=== PATIENT | female | born 1990 ===

== ENCOUNTER 2016-07-01 12:22 | Emergency (ER) | payer OTHER ==
[~2016-07-01] VITALS: Ht 162.6 cm; Wt 64.0 kg
[~2016-07-01 12:22] MED LIST: FERR1TAB13 PO; PRENTAB26 PO
[2016-07-01 12:33] VITALS: BP 113/71; PULSE 71; TEMP 36.3; O2SAT 97; Ht 162.6 cm; Wt 64.0 kg
[2016-07-01] MEDS ORDERED: AMOX500C3 PO (13:16)
--- NOTE | 2016-07-01 19:25 | EMERGENCY ROOM VISIT NOTE ---
History Report prepared by Leora: Ewa Saavedra Under the Supervision of: Dr. Eb Blackwood M.D. First contact with patient: 12:50 Chief Complaint: SORETHROAT Stated Complaint: SORE THROAT, BODY ACHES History of Present Illness The patient is a 25 year old female who presents to the Emergency Room with complaints of a constant sorethroat beginning 2 days ago. The patient states that her daughter was diagnosed with strep throat earlier this week and has been on antibiotics. She reports that her developed a sore throat and she did as well. She complains of body aches. The patient denies any fever, cough, chest pain, and shortness of breath. Source of History: patient Onset: 2 days ago Position: throat Quality: other (sore) Timing: constant Associated Symptoms: No SOB, No chest pain, No cough, No fevers Note: She complains of body aches. Review of Systems See HPI for pertinent positives & negatives. A total of 6 systems reviewed and were otherwise negative. Past Medical & Surgical Medical Problems: (1) Ovarian cyst Family History Cancer Hypertension Social History Smoking Status: Never Smoker Alcohol Use: none Marital Status: Housing Status: lives with family Occupation Status: unemployed Current/Historical Medications Scheduled Amoxicillin (Amoxil), 500 MG PO TID Allergies Coded Allergies: Shrimp (Verified Allergy, Unknown, RASH, 07/01/16) Physical Exam Vital Signs Date Time Temp Pulse Resp B/P Pulse Ox O2 Delivery O2 Flow Rate FiO2 07/01/16 12:33 97 Room Air 07/01/16 12:33 36.3 71 18 113/71 97 Room Air Physical Exam Constitutional: Vital signs reviewed. Eyes: Pupils are equal round reactive to light. Conjunctiva are noninjected. ENT: Pharynx is without exudate. Diffuse erythema to the throat. Mucous membranes are moist. Neck supple without meningeal signs. No cervical lymphadenopathy. Respiratory: Clear to auscultation bilaterally. Breath sounds are equal bilaterally. Cardiovascular: Regular rate and rhythm. No rubs or gallops. Integumentary: No cyanosis. Neurological: The patient is awake and alert. No focal deficits. Psychiatric: Normal affect. Medical Decision & Procedures ED Course 1250: The patient was evaluated in room A9. A complete history and physical exam was performed. 1332: Upon reevaluation, the patient appeared to have improvement of her symptoms. I discussed tonight's findings with the patient. She verbalized agreement of the treatment plan. The patient was discharged home. Medical Decision This is a 25-year-old female presents with a sore throat. I did perform a limited focused review of portions of the patient's old chart on the electronic medical record. The patient has had no recent pertinent visits to this hospital. I did evaluate the patient as noted above. I did evaluate the patient as noted above. She is presenting with a sore throat and has diffuse erythema to her posterior oropharynx. She has no signs of peritonsillar abscess or exudate. She has no signs of sepsis. Her daughter was diagnosed with strep throat based on a rapid strep test. Given her symptoms and exposure I did recommend empiric antibiotic treatment. The patient was in agreement. She does understand that they will pass into her breast milk. She was given a prescription for amoxicillin for 10 days. Impression Primary Impression: Pharyngitis Scribe Attestation The scribe's documentation has been prepared under my direct and personally reviewed by me in its entirety. I confirm that the note above accurately reflects all work, treatment, procedures, and medical decision making performed by me. Departure Information Dispostion Home / Self-Care Prescriptions Amoxicillin (AMOXIL) 500 Mg Cap 500 MG PO TID, #30 CAP Prov: Eb Blackwood M.D. 07/01/16 Referrals Jossy Mukherjee M.D. (PCP) Forms HOME CARE DOCUMENTATION FORM, IMPORTANT VISIT INFORMATION Patient Instructions ED Strep Pharyngitis Jyothi, [facility] Additional Instructions You have been examined and treated today on an emergency basis only. This is not a substitute for, or an effort to provide, complete comprehensive medical care. It is impossible to recognize and treat all injuries or illnesses in a single emergency department visit. It is therefore important that you follow up closely with your physician. Call as soon as possible for an appointment. Return for worsening symptoms or if you develop difficulty breathing or any other concerning symptoms. Problem Qualifiers Primary Impression: Pharyngitis Pharyngitis/tonsillitis etiology: unspecified etiology Qualified Codes: J02.9 - Acute pharyngitis, unspecified
== END 2016-07-01 13:32 | disposition home or self-care (01) ==
LOC: C.EDB 12:22 → C.EDA 13:32
DX: J02.9 Acute pharyngitis, unspecified (principal)

== ENCOUNTER 2017-12-01 10:57 | Outpatient (CLI) | payer OTHER ==
[2017-12-01] MEDS ORDERED: FERR1TAB23 PO (20:57)
[2017-12-01] MEDS ORDERED: PRENTAB26 PO (20:57)
[2017-12-03] MEDS ORDERED: MTR600X PO (07:50)
--- NOTE | 2017-12-07 11:33 | EDITING REQUIRED CODING QUERY ---
DIAGNOSIS NEEDED To promote full compliance with coding requirements relating to patient care, physician participation is requested in all cases of death surveys coder uncertainty. Please assist us with the question(s) below: Coding Question: The patient received care in labor and delivery on 12/01/17 as noted within the record. Please document the diagnosis that is being addressed by the medication/treatment. Provider Response: DIAGNOSIS: Contractions, not in labor WEEKS OF GESTATION: 40.2 weeks Thank you for your assistance, Marysol Mccabe - [employer] Supervisor
== END 2017-12-01 14:40 | disposition home or self-care (01) ==
LOC: C.OPB 10:57 → C.LD 10:58 → C.OPB 14:40
PROVIDERS: ATTEND Obstetrics & Gynecology
DX: O62.9 Abnormality of forces of labor, unspecified (principal); Z3A.40 40 weeks gestation of pregnancy

== ENCOUNTER 2019-11-24 18:36 | Inpatient (IN) ==
[2019-11-24] MEDS ORDERED: LACTATED RINGER'S 1,000 ML IV PRN (18:38)
[2019-11-24] MEDS ORDERED: PENICILLIN G POTASSIUM 3 MU in DEXTROSE 5% 100 ML IV PRN (18:38)
[2019-11-24] MEDS ORDERED: OXYTOCIN 30 UNITS/500 ML BAG IV PRN ×2 (18:38→19:51)
--- NOTE | 2019-11-24 18:49 | Obstetrical Progress Note ---
Date of Service November 24, 2019 Assessment & Plan Admission and Anticipated Discharge Date Admission Date: November 24, 2019 Subjective Pt is a 29 yo at term with poor care who was attempting a home delivery. pain became unbearable so pt called the ambulance and was brought to [facility] On arrival FHR is documented ctx are present VE. fully with bulging membranes plan admit IVF GBS culx. obtained prophylaxis antibx . for GBS started
[2019-11-24] MEDS ORDERED: PENICILLIN G POTASSIUM 6 MU in DEXTROSE 5% 250 ML IV ONE (19:00)
[2019-11-24 19:01] LABS: Hematocrit (blood only) 33.9 % (37-47); Hemoglobin 11.7 g/dL (12.0-16.0); Mean Corpuscular Volume 89.9 fL (80-100); Platelet Count 183 K/uL (130-400); RDW Coefficient of Variation 14.1 % (11.5-14.5); RDW Standard Deviation 46.5 fL (36.4-46.3); Red Blood Count 3.77 M/uL (4.2-5.4); White Blood Count 13.61 K/uL (4.8-10.8)
[2019-11-24 19:13] LABS: Mean Corpuscular Hgb Conc 34.5 g/dL (32-36)
[2019-11-24] MEDS ORDERED: miSOPROStoL 200 MCG TAB PR ONE (19:51)
[2019-11-24] MEDS ORDERED: BENZOCAINE 20% AER SPR 82.5 GM CAN EXT PRN (19:51)
[2019-11-24] MEDS ORDERED: DIPHTHERIA/TETANUS/PERTUSSIS 0.5 ML SYR/VIAL IM ONE (19:51)
[2019-11-24] MEDS ORDERED: SUPERCREAM 0.870% 15 GM JAR EXT PRN (19:51)
[2019-11-24] MEDS ORDERED: HYDROCORTISONE ACETATE 25 MG SUPP PR PRN (19:51)
[2019-11-24] MEDS ORDERED: bisacodyL 10 MG SUPP PR PRN (19:51)
[2019-11-24] MEDS ORDERED: METHYLERGONOVINE MALEATE 0.2 MG/ML AMP IM ONE (19:51)
[2019-11-24] MEDS ORDERED: ACETAMINOPHEN 325 MG TAB PO PRN (19:51)
[2019-11-24 21:01] LABS: Amphetamines+Metham, Urine Neg (Neg); Barbiturates, Urine Neg (Neg); Benzodiazepine, Urine Neg (Neg); Cocaine, Urine Neg (Neg); MDMA (Ecstacy), Urine Neg (Neg); Methadone, Urine Neg (Neg); Opiate, Urine Neg (Neg); Phencyclidine, Urine Neg (Neg)
[2019-11-24] MEDS: DOCUSATE SODIUM 100 MG CAP PO SCH (22:27)
[2019-11-24] MEDS: IBUPROFEN 600 MG TAB PO PRN (22:34)
--- NOTE | 2019-11-25 02:03 | Delivery Summary ---
DATE OF OPERATION: 11/24/2019 The patient delivered a live infant male in left occiput anterior presentation. There was no nuchal cord. Infant was delivered, placed on mother's abdomen. Delayed cord clamp was performed after 1 minute. Apgars 8 and 9. Cord blood was obtained. Placenta was spontaneously delivered. Examination of placenta shows a grossly normal looking placenta. The patient had poor care. Placenta will be therefore sent to pathology for pathological analysis. Inspection of the perineum showed a third-degree bilateral periurethral laceration. There was good hemostasis post delivery. Rectal exam post repair showed good sphincter tone. No suturing was performed since the laceration sites were not bleeding. All instruments were removed from the vagina and accounted for x2 including sponges and retractors. Baby and mother are doing well in recovery. I attest to the content of the Intraoperative Record and any orders documented therein. Any exceptions are noted below. MARÍA ELENA
[2019-11-25] MEDS: IBUPROFEN 600 MG TAB PO PRN ×3 (03:27→15:19)
[2019-11-25] MEDS ORDERED: miSOPROStoL 200 MCG TAB ONE (04:45)
[2019-11-25 06:40] LABS: Hematocrit (blood only) 34.3 % (37-47); Hemoglobin 11.5 g/dL (12.0-16.0); Mean Corpuscular Hemoglobin 30.7 pg (25-34); Mean Corpuscular Hgb Conc 33.5 g/dL (32-36); Mean Corpuscular Volume 91.7 fL (80-100); Mean Platelet Volume 11.3 fL (7.4-10.4); Platelet Count 206 K/uL (130-400); RDW Coefficient of Variation 14.2 % (11.5-14.5); RDW Standard Deviation 46.8 fL (36.4-46.3); Red Blood Count 3.74 M/uL (4.2-5.4)
--- NOTE | 2019-11-25 07:43 | Obstetrical Progress Note ---
Date of Service November 25, 2019 Assessment & Plan Admission and Anticipated Discharge Date Admission Date: November 24, 2019 Subjective Patient is seen and examined. She feels well, no complaints. Ambulating without dizziness Voiding without difficulty Tolerating regular diet with out N&V Bleeding is minimal No fever/ chills/ CP/ SOB/ N&V/ Leg pain without problems Vital Signs Temp Pulse Pulse Resp BP BP Pulse Ox 11/25/19 03:10 37.0 C 80 16 107/65 96 11/24/19 22:30 36.8 C 86 16 123/70 98 11/24/19 21:48 93 H 112/82 11/24/19 21:33 114/66 11/24/19 21:18 88 20 114/66 11/24/19 21:04 84 122/63 11/24/19 20:48 75 20 110/56 L 11/24/19 20:34 85 18 130/73 11/24/19 20:19 85 18 130/73 11/24/19 20:08 85 20 130/73 11/24/19 19:48 88 108/58 L Lab Results 11/24/19 11/24/19 11/25/19 Range/Units 18:53 20:00 06:26 WBC 13.61 H 14.20 H (4.8-10.8) K/uL RBC 3.77 L 3.74 L (4.2-5.4) M/uL Hgb 11.7 L 11.5 L (12.0-16.0) g/dL Hct 33.9 L 34.3 L (37-47) % MCV 89.9 91.7 (80-100) fL MCH 31.0 30.7 (25-34) pg MCHC 34.5 33.5 (32-36) g/dL RDW Std Deviation 46.5 H 46.8 H (36.4-46.3) fL RDW Coeff of Tom 14.1 14.2 (11.5-14.5) % Plt Count 183 206 (130-400) K/uL MPV 11.0 H 11.3 H (7.4-10.4) fL Urine Opiates Screen Neg (Neg) Ur Methadone, Qual Neg (Neg) Urine Barbiturates Neg (Neg) Ur Phencyclidine (PCP) Neg (Neg) U Amphetamin/Meth Scrn Neg (Neg) MDMA (Ecstasy) Screen Neg (Neg) U Benzodiazepines Scrn Neg (Neg) Ur Cocaine Metabolite Neg (Neg) U Marijuana (THC) Screen Neg (Neg) PE: General: Alert, orientedx3, NAD Abd: soft, NT, fundus firm, below Umbilicus Perineum intact, Lochia rubra minimal Ext; NT, no edema AP: 29 yo s/p , ppd# 1 VSS Afebrile doing well Continue routine care All questions were answered D/C home tomorrow Results & Data ([facility]) Vital Signs (Past 12 Hours) Vital Signs Temp Pulse Pulse Resp BP BP Pulse Ox 11/25/19 03:10 37.0 C 80 16 107/65 96 11/24/19 22:30 36.8 C 86 16 123/70 98 11/24/19 21:48 93 H 112/82 11/24/19 21:33 114/66 11/24/19 21:18 88 20 114/66 11/24/19 21:04 84 122/63 11/24/19 20:48 75 20 110/56 L 11/24/19 20:34 85 18 130/73 11/24/19 20:19 85 18 130/73 11/24/19 20:08 85 20 130/73 11/24/19 19:48 88 108/58 L
[2019-11-25] MEDS: DOCUSATE SODIUM 100 MG CAP PO SCH ×2 (08:40→20:19)
[2019-11-25] MEDS: PRENATAL VITAMIN 1 TAB PO SCH (08:40)
[2019-11-25] MEDS ORDERED: bisacodyL 5 MG TABEC PO SCH (20:00)
[2019-11-26 06:01] LABS: Hematocrit (blood only) 34.2 % (37-47); Hemoglobin 11.7 g/dL (12.0-16.0)
--- NOTE | 2019-11-26 08:27 | Obstetrical Progress Note ---
Date of Service November 26, 2019 Assessment & Plan (1) Normal course: PPD #2 pt doing well d/c home with instrcutions Results & Data Vital Signs (Past 12 Hours) Vital Signs Temp Pulse Resp BP Pulse Ox 11/26/19 00:25 36.8 C 60 16 101/63 97
[2019-11-26] MEDS: PRENATAL VITAMIN 1 TAB PO SCH (09:01)
[2019-11-26] MEDS: IBUPROFEN 600 MG TAB PO PRN (09:01)
[2019-11-26] MEDS: DOCUSATE SODIUM 100 MG CAP PO SCH (09:01)
== END 2019-11-26 13:29 | disposition home or self-care (01) | DRG 768 ==
LOC: 4S2 18:36 → OPB 18:36 → 4S2 18:38